=== PATIENT | female | born 1960 | race Caucasian/White ===

== ENCOUNTER → 2018-11-25 | Day surgery (SDC) | payer MEDICARE, OTHER ==
--- NOTE | 2018-11-17 23:45 | Pre Op History & Physical ---
CHIEF COMPLAINT: Left neck mass and left tonsil mass. HISTORY OF PRESENT ILLNESS: This 58-year-old female was noted to have a lesion in the left neck and also tonsillar area. The history is not very consistent, one week versus August 2018. The patient was seen in the ER few days ago and spitting up blood. She also claimed that she lost about 5 pounds. The patient stopped smoking about a year ago, has a [id number] smoking history and is a social drinker. The patient denies any dysphagia or odynophagia. The patient claimed that she has some choking and dysphagia. The patient also claimed that she notified her physician a week ago during her well woman visit with the present condition. CT scan of the neck that was done showed the patient has a 3 cm left tonsillar mass and marked left level two lymphadenopathy noted. I have discussed with Dr. Denise, the radiologist regarding that the mass. The tonsillar mass did not seem to have any obvious vascular connection or did not seem like it is an aneurysm. REVIEW OF SYSTEMS: System review showed no recent cardiovascular, respiratory, or GI problem. PAST MEDICAL HISTORY: The patient has no significant medical problems. She has mitral valve prolapse. PAST SURGICAL HISTORY: She had previous facial repair from dog bite. SOCIAL HISTORY: She has a [id number] smoking history, stopped about a year ago, was a social drinker. ALLERGIES: THE PATIENT CLAIMED THAT SHE HAS DIFFICULTY WITH DEMEROL, WHICH MAKES HER HALLUCINATE. MEDICATION: The patient takes baby aspirin and fish oil. FAMILY HISTORY: Noncontributory. PHYSICAL EXAMINATION: VITAL SIGNS: The patient's vital signs were within normal limits. ENT: Ear exam showed normal tympanic membranes bilaterally. Nasal exam showed deviated nasal septum, right side about 20%. Oropharynx and oral cavity show no trismus. The patient has 4+ tonsils on the left side, 2+ on the right. NECK: 3 x 2 cm left jugulodigastric mass on the left side. No other lymph node was palpable. No thyroid palpable. CHEST: Showed good air entry bilaterally. CARDIOVASCULAR: S1 and S2. No murmur noted. IMPRESSION: Mrs. Marie has a lesion in the left tonsil with metastatic lesion to the left neck. Malignancy cannot be ruled out. The suggested treatment is left tonsillectomy, panendoscopy, microlaryngoscopy, biopsy, and possible fine-needle aspiration of the left neck and other necessary procedure. Complication of procedure includes, but not limited to bleeding, infection, hyponasal speech, nasal regurgitation of food, airway distress, recurrence of the sore throat along with pneumomediastinum, mediastinitis, airway compromise, pulmonary edema, persistent recurrence of the problem. The alternatives will be continue observation, continue antibiotic therapy, fine-needle aspiration of neck mass and biopsy of neck mass at the tonsil area in the office setting. The patient then was seen with her daughter, they both elected to undergo the surgical procedure. I have advised that the patient stop her aspirin at least 7 to 10 days before procedure. The patient has been given antibiotic prophylaxis before her procedure because of mitral valve prolapse. The patient has elected to undergo surgical procedure. Nicolás Christian MD DKH/MODL /[id number] cc: MD Brando Rangel
--- OUTSIDE RECORDS SUMMARY | 2018-11-18 10:07 | XMS REPORT | Clinical Summary ---
Author Author [facility] Organization [facility] Address Unknown Phone Unavailable Care Team Providers Care Scenario Writer Name Role Phone PCP Unavailable Allergies Comments Active Allergy Reactions Severity Noted Date Meperidine 10/21/2018 Medications Not on file Active Problems Not on file Encounters Care Team Description Date Type Specialty Dean Newsome MD Neck mass (Primary Dx) 10/21/2018 Emergency Emergency Medicine 10/21/2018 Travel after 11/17/2017 Social History Date Tobacco Use Types Packs/Day Years Used Never Assessed Sex Assigned at Date Recorded Not on file Industry Job Start Date Occupation Not on file Not on file Not on file Travel End Travel History Travel Start No recent travel history available. Last Filed Vital Signs Reading Time Taken Comments Vital Sign 117/69 10/21/2018 6:30 PM CDT Blood Pressure 65 10/21/2018 6:30 PM CDT Pulse 37.1 C (98.8 F) 10/21/2018 6:30 PM CDT Temperature 19 10/21/2018 6:30 PM CDT Respiratory Rate 96% 10/21/2018 6:30 PM CDT Oxygen Saturation - - Inhaled Oxygen Concentration - - Weight - - Height - - Body Mass Index Plan of Treatment Care Team Description Date Type Specialty Zoey Wright PA [phone] 12/03/2018 Office Visit Oncology Health Maintenance Due Date Last Done Comments Cervical Cancer Scrn (3 01/07/1981 Yrs) Breast Cancer Scrn 2000 (Yearly) Colorectal Cancer Scrn 01/07/2010 Annual (FIT/FOBT) Age 50 to 75 IMM Influenza Seasonal 03/24/2019 Oct to August (>/=19 yrs) Procedures Comments Procedure Name Priority Date/Time Associated Diagnosis BMP POC Routine 10/21/2018 4:08 PM CDT after 11/17/2017 Results * BMP POC (10/21/2018 4:08 PM CDT) CO2 POC 28Comment: Physician Notified 21 - 32 mmol/L [facility] Chloride POC 104 98 - 107 mmol/L [facility] 1 Potassium POC 4.3 3.50 - 5.10 mmol/L [facility] 1 Sodium POC 142 136 - 145 mmol/L [facility] 1 Glucose POC 97 74 - 106 mg/dL [facility] 1 Urea Nitrogen 15 7 - 18 mg/dL [facility] 1 Creatinine POC 0.7 0.6 - 1.3 mg/dL [facility] 1 Calcium Ionized 1.20 1.15 - 1.29 mmol/L [facility] 1 Hemoglobin POC 13.6 12.0 - 16.0 g/dL [facility] 1 Hematocrit POC 40.0 37.0 - 47.0 % [facility] 1 GFR, Estimated >60 mL/min/1.73 m2 [facility] 1 GFR, Estim, >60 mL/min/1.73 m2 [facility] 1 Specimen Performing Organization Address City/State/Zipcode Phone Number [facility] 1 after 11/17/2017 Insurance Type Payer Benefit Subscriber ID Effective Phone Address Plan / Dates Group [facility] PRESUMED INDIGENT PRESUMED xxxxxxxxx 2018- INDIGENT 2018
--- OUTSIDE RECORDS SUMMARY | 2018-11-18 10:07 | XMS REPORT ---
Author Author [facility] Address Unknown Phone Unavailable Care Team Providers Care Jackhammer Operator Name Role Phone Unavailable Unavailable Problems This patient has no known problems. Allergies, Adverse Reactions, Alerts This patient has no known allergies or adverse reactions. Medications This patient has no known medications. Encounters Start Date/Time End Date/Time Encounter Type Admission Type Attending [facility] Care Facility Care Department Encounter ID 2018-12-03 00:00:00 2018-12-03 00:00:00 Outpatient [facility] [id number] 2018-10-21 17:55:09 2018-10-21 17:55:09 Emergency [facility] [address] MED [id number]
--- OUTSIDE RECORDS SUMMARY | 2018-11-18 10:07 | XMS REPORT | Clinical Summary ---
Author Author [facility] Address Unknown Phone Unavailable Care Team Providers Care Needle Bar Molder Name Role Phone Asked, No Pcp PCP Unavailable Allergies Comments Active Allergy Reactions Severity Noted Date Meperidine 11/09/2018 Medications End Date Status Medication Sig Dispensed Refills Start Date Active amoxicillin/potassium Take by 0 clav (AUGMENTIN XR ORAL) mouth. Active FISH OIL-DHA-EPA ORAL Take by 0 mouth. 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 Last Filed Vital Signs Time Taken Vital Sign Reading 11/10/2018 9:01 PM CDT Blood Pressure 110/63 11/10/2018 9:01 PM CDT Pulse 65 11/10/2018 9:01 PM CDT Temperature 35.8 C (96.5 F) 11/10/2018 9:01 PM CDT Respiratory Rate 17 11/10/2018 9:01 PM CDT Oxygen Saturation 98% - Inhaled Oxygen - Concentration 11/09/2018 11:31 PM CDT Weight 56.7 kg (125 lb) 11/09/2018 11:31 PM CDT Height 154.9 cm (5' 1") 11/09/2018 11:31 PM CDT Body Mass Index 23.62 Plan of Treatment Health Maintenance Due Date Last Done Comments COLON CANCER SCREENING 01/07/2010 SHINGLES VACCINES (#1) 01/07/2010 BREAST CANCER SCREENING 03/25/2017 03/25/2015, 03/20/2013 INFLUENZA VACCINE 01/22/2019 Procedures Comments Procedure Name Priority Date/Time Associated Diagnosis PROTHROMBIN TIME WITH INR Routine 11/10/2018 1:00 AM CDT ESTIMATED GFR STAT 11/10/2018 1:00 AM CDT HC COMPLETE BLD COUNT STAT 11/10/2018 W/AUTO DIFF 1:00 AM CDT COMPREHENSIVE METABOLIC STAT 11/10/2018 PANEL 1:[address] SOFT TISSUE NECK WO STAT 11/10/2018 CONTRAST 12:57 AM CDT after 11/17/2017 Results * Estimated GFR (11/10/2018 1:00 AM CDT) Estimated GFR 81 mL/min/1.73 m2 [place] Comment: GRETCHEN MARTIN [facility] G1 >=90 Normal or high G2 60-89Mildly decreased A1q54-98 Mildly to moderately decreased [id number] Moderately to severely decreased G4 15-29Severely decreased G5 <15Kidney failure The eGFR was calculated using the Chronic Kidney Disease Epidemiology Collaboration (CKD-EPI) equation. Interpretation is based on recommendations of the National Kidney Foundation-Kidney Disease Outcomes Quality Initiative (NKF-KDOQI) published in 2014. Specimen Plasma specimen Performing Organization Address City/State/Zipcode Phone Number [facility] [address] [place] [address] PATHOLOGY AND GENOMIC MEDICINE [facility] [address] * Prothrombin time with INR (11/10/2018 1:00 AM CDT) Prothrombin 12.8 11.5 - 14.5 sec [facility] INR 0.99 [place] Comment: GRETCHEN MARTIN For patients on anticoagulant HANANE therapy, reference ranges HOSPITAL below: Indication: INR Value Treatment of Venous Thrombosis, 2.0-3.0 pulmonary emboli, or prophylaxis of a venous thrombosis, or systemic emboli. High dose, high risk patients 3.0-4.5 with mechanical valves. NOTE:INR values over 3.0 are sometimes associated with gastrointestinal hemorrhage, especially values over 4.0. Specimen Blood Performing Organization Address City/State/Zipcode Phone Number [facility] DE[facility] OF [address] [place] [address] PATHOLOGY AND GENOMIC MEDICINE [place] [id number] * CBC with platelet and differential (11/10/2018 1:00 AM CDT) WBC 7.8 4.2 - 11.0 k/uL [facility] RBC 4.43 4.04 - 5.86 m/uL [facility] HGB 12.6 11.5 - 15.3 g/dL [facility] HCT 39.9 34.0 - 45.0 % [facility] MCV 90.1 80.0 - 98.0 fL [facility] MCH 28.4 27.0 - 34.0 pg [facility] MCHC 31.6 31.5 - 36.5 g/dL [facility] RDW - SD 39.3 37.0 - 51.0 fL [facility] MPV 9.3 7.4 - 10.4 fL [facility] Platelet count 272 150 - 400 k/uL [facility] Nucleated RBC 0.00 /100 WBC [facility] Neutrophils 48.3 36.0 - 66.0 % [facility] Lymphocytes 41.9 24.0 - 44.0 % [facility] Monocytes 5.5 0.0 - 6.0 % [facility] Eosinophils 3.4 0.0 - 6.0 % [facility] Basophils 0.6 0.0 - 1.2 % [facility] Immature 0.3 0.0 - 1.0 % [place] granulocytes [facility] Specimen Blood Performing Organization Address City/State/Zipcode Phone Number [facility] [address] [place] [address] PATHOLOGY AND GENOMIC MEDICINE [facility] [address] * Comprehensive metabolic panel (11/10/2018 1:00 AM CDT) Sodium 139 135 - 150 mEq/L [facility] Potassium 3.7 3.5 - 5.0 mEq/L [facility] Chloride 101 98 - 112 mEq/L [facility] CO2 28 24 - 31 mmol/L [facility] Anion gap 10@ANIO 7 - 15 mEq/L [facility] BUN 22 (H) 7 - 18 mg/dL [facility] Creatinine 0.80 0.50 - 0.90 mg/dL [facility] Glucose 95 65 - 100 mg/dL [facility] Calcium 10.2 8.3 - 10.2 mg/dL [facility] Protein 7.6 6.3 - 8.3 g/dL [facility] Albumin 3.9 3.5 - 5.0 g/dL [facility] A/G ratio 1.1 0.7 - 3.8 [facility] Alkaline 71 0 - 104 U/L [place] phosphatase [facility] AST 28 10 - 35 U/L [facility] ALT 20 5 - 50 U/L [facility] Total bilirubin 0.4 0.2 - 1.2 mg/dL [facility] Specimen Plasma specimen Performing Organization Address City/State/Zipcode Phone Number [facility] OF [address] [place] [address] PATHOLOGY AND GENOMIC MEDICINE [facility] [address] * CT Soft Tissue Neck Wo Contrast (11/10/2018 12:57 AM CDT) Specimen Narrative Performed At EXAMINATION: CT SOFT TISSUE NECK WO CONTRAST [facility] CLINICAL HISTORY: difficulty swallowingsoft palate and tonsillar mass COMPARISON:None TECHNIQUE: Noncontrast enhanced imaging through the neck was performed from the upper chest through the skull base with coronal and sagittal reconstructed images. CT scans are performed using radiation dose reduction techniques (iterative reconstruction and/or automated exposure control). Technical factors are evaluated and adjusted to ensure appropriate moderation of exposure. Automated dose management technology is applied to adjust radiation exposure while achieving a diagnostic quality image. FINDINGS: 2.5 x 2.7 cm left palatine tonsil mass lesion (axial measurements) which effaces the normal architecture of the left lateral oropharynx (2 much lesser extent the nasopharynx) and results in moderate nasopharyngeal and oropharyngeal narrowing. This finding is highly concerning for malignancy, specifically squamous cell carcinoma. Age inferior extent, the mass lesion extends ventrally beyond the glossotonsillar sulcus to involve the left base of tongue (see image 58 of series 2, for example). Involvement of the left res counselor space/pterygoid musculature is not entirely excluded, as this region is obscured by dental amalgam beam hardening. There is associated adenopathy, likely metastatic, including a dominant 3.1 cm left level 2A lymph node. Other findings: Nonspecific. Facial edema. Visible orbits and intracranial contents are unremarkable. Minimal sinus mucosal thickening Severe centrilobular emphysema. No significant abnormality of the parotid, submandibular, or thyroid glands. No acute osseous abnormalities. Degenerative change. IMPRESSION: Mass lesion presumably squamous cell carcinoma involving the left palatine tonsil, with regional mass effect and moderate oral pharyngeal and nasopharyngeal narrowing as detailed above. Ventral extension with invasion of the left tongue. Involvement of the left res counselor space is not excluded (dental amalgam results in beam hardening which obstructs visualization of the pterygoid muscles). Metastatic adenopathy. [facility]-[id number] Procedure Note [facility], Radiology Results Incoming - 11/10/2018 1:19 AM CDT EXAMINATION: CT SOFT TISSUE NECK WO CONTRAST CLINICAL HISTORY: difficulty swallowing soft palate and tonsillar mass COMPARISON: None TECHNIQUE: Noncontrast enhanced imaging through the neck was performed from the upper chest through the skull base with coronal and sagittal reconstructed images. CT scans are performed using radiation dose reduction techniques (iterative reconstruction and/or automated exposure control). Technical factors are evaluated and adjusted to ensure appropriate moderation of exposure. Automated dose management technology is applied to adjust radiation exposure while achieving a diagnostic quality image. FINDINGS: 2.5 x 2.7 cm left palatine tonsil mass lesion (axial measurements) which effaces the normal architecture of the left lateral oropharynx (2 much lesser extent the nasopharynx) and results in moderate nasopharyngeal and oropharyngeal narrowing. This finding is highly concerning for malignancy, specifically squamous cell carcinoma. Age inferior extent, the mass lesion extends ventrally beyond the glossotonsillar sulcus to involve the left base of tongue (see image 58 of series 2, for example). Involvement of the left res counselor space/pterygoid musculature is not entirely excluded, as this region is obscured by dental amalgam beam hardening. There is associated adenopathy, likely metastatic, including a dominant 3.1 cm left level 2A lymph node. Other findings: Nonspecific. Facial edema. Visible orbits and intracranial contents are unremarkable. Minimal sinus mucosal thickening Severe centrilobular emphysema. No significant abnormality of the parotid, submandibular, or thyroid glands. No acute osseous abnormalities. Degenerative change. IMPRESSION: Mass lesion presumably squamous cell carcinoma involving the left palatine tonsil, with regional mass effect and moderate oral pharyngeal and nasopharyngeal narrowing as detailed above. Ventral extension with invasion of the left tongue. Involvement of the left res counselor space is not excluded (dental amalgam results in beam hardening which obstructs visualization of the pterygoid muscles). Metastatic adenopathy. [facility]-[id number] Performing Organization Address City/State/Zipcode Phone Number [facility] [address] [place] [address] after 11/17/2017 Insurance Type Payer Benefit Subscriber ID Effective Phone Address Plan / Dates Group Commercial COMMERCIAL MISC MISC xxxxxxxxxxx 2018-P COMMERCIAL resent Advance Directives Patient has advance care planning documents on file. For more information, pleas e contact: Reuben Colindres [address] [place] [address]
[~2018-11-25] MED LIST: ASPIR-LOW81 MG; BUPIVACAINE 0.5%/EPI 30 ML SDV INJ ONE; DEXAMETHASONE SOD PHOS 10 MG/1 ML VIAL ONE; FENTANYL CITRATE/PF 100MCG/2 ML INJ ONE; FISH OIL 1,2001 EACH; GLYCOPYRROLATE INJ 1MG/ 5 ML SYR ONE; LIDOCAINE HCL 2% LOCAL INJ 5 ML SDV VIAL INJ ONE; MIDAZOLAM HCL 2 MG/2 ML VIAL ONE; NEOSTIGMINE 5 MG/5ML SYR ONE; ONDANSETRON HCL INJ 2MG/ML 2ML 2 MG/ML VIAL ONE; OXYMETAZOLINE HCL 0.05% NAS 1 SPRAY BTL ONE; PROPOFOL IV EMULSION 10 MG/ML 20 ML VIAL ONE; ROCURONIUM BROMIDE 10 MG/ML 5ML VIAL ONE; SEVOFLURANE INHAL SOLN 250 ML PEN BTL ONE
--- NOTE | 2018-11-25 10:49 | Diagnostic Imaging Report ---
EXAM: CHEST 2 VIEWS DATE: 11/25/2018 9:47 AM INDICATION: ^PRE-OP ORDER ^[id number] ^[id number] COMPARISON: None FINDINGS: Lines and tubes: None Heart size normal. No focal pulmonary opacity, pleural effusion or pneumothorax. Upper abdomen unremarkable. No acute bony abnormality. IMPRESSION: No evidence for acute disease. Signed by: Dr. Taz Covarrubias M.D. on 11/25/2018 10:46 AM
[2018-11-25 14:20] VITALS: BP 110/63
--- NOTE | 2018-11-25 19:09 | Operative Report ---
DATE OF PROCEDURE: 11/25/2018 SURGEON: Nicolás Christian MD PREOPERATIVE DIAGNOSIS: Left tonsil mass. POSTOPERATIVE DIAGNOSIS: Left tonsil mass. OPERATIVE PROCEDURES: Left tonsillectomy, direct laryngoscopy, rigid esophagoscopy, rigid bronchoscopy, microlaryngoscopy, biopsy of the left tongue base. ANESTHESIA: Anesthesiology Group. INDICATIONS: This 58-year-old female, who was noted to have a lesion in the left tonsillar area. The length of time that the patient had the lesion was not very clear. The patient also has a left neck mass. On examination, the patient was noted to have a lesion in the left tonsillar area about 4+ on the left with 1+ tonsils on the right. A CT scan of the neck showed the patient has a large mass in the left tonsillar area with left jugulodigastric mass noted. No vascular invasion of the left tonsillar mass was noted. The patient has a 93-[id number]-[id number] smoking history and is nondrinker. It was decided that left tonsillectomy with panendoscopy, microlaryngoscopy and biopsy and other necessary procedure will be beneficial for her. DESCRIPTION OF PROCEDURE: The patient was taken to the operating room, put under general anesthesia, endotracheally intubated. She was put in Liudmila position and McIvor mouth gag was inserted. The tonsillar fossas were injected with 0.5% Marcaine with 1:200,000 epinephrine on the left side. The left tonsillar mass was retracted medially. It came off piecemeal because was very friable. The whole mass was able to be taken out. The invasion of the vasculature of the tonsillar bed was noted from the tumor especially superiorly at the superior pole of the tonsil. This was sent for frozen section. 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 The area was irrigated with copious amount of normal saline. Hemostasis was achieved using the suction cautery. The panendoscopy was performed. The patient was repositioned. Rigid esophagoscopy was performed. Esophagoscope was passed through the cricopharyngeus muscle. The esophagus was examined to about 25 cm from the incisor. No abnormality was noted. Esophagoscope was retrieved. The rigid bronchoscopy was performed. Size 4 bronchoscope with Scott wire was used. The bronchoscope was passed parallel to endotracheal tube. Endotracheal tube cuff was deflated. Trachea was examined down to the remy. No abnormality was noted. The bronchoscope was retrieved. The endotracheal tube cuff was reinflated. The direct laryngoscopy was performed. The Kavita laryngoscope was used. The oropharynx and oral cavity were examined. A nodular lesion was noted in the left tongue base next to the tonsillar area. This was biopsied with a cup forceps and sent for Permanent Section. The piriform sinus on either side was examined. No abnormality was noted. The larynx was examined. Both the true and false vocal folds were examined. No abnormality was noted. The microlaryngoscopy was performed. The laryngoscope was put on suspension and the operating microscope was brought in. The larynx and the hypopharynx were re-examined. No other abnormality was noted. The stomach was suctioned out at the end of procedure. The patient was given 20 mg of Decadron intraoperatively. She was able to be transferred to recovery room in stable condition. Estimated blood loss for procedure was about 30 mL. MD MANGO Cuellar/ISI /[id number]
== END | disposition home or self-care (01) ==
LOC: OR 11-18 10:05
PROVIDERS: ATTEND Otolaryngology Otolaryngology/Facial Plastic Surgery
DX: C09.9 Malignant neoplasm of tonsil, unspecified (principal); F41.9 Anxiety disorder, unspecified; Z88.6 Allergy status to analgesic agent; Z79.82 Long term (current) use of aspirin; Z87.891 Personal history of nicotine dependence
CPT/HCPCS: 31536; 31622; 42826; 43191; 71046; 88305; 88331; 88342; 93005; A4467; J1100; J2001; J2250; J2405; J2704; J3490